=== PATIENT | female | born 1980 | race Caucasian/White ===

== ENCOUNTER 2017-04-24 03:38 | Emergency (ER) | payer OTHER ==
[2017-04-24 04:02] LABS: URINE BILIRUBIN NEGATIVE (NEGATIVE); URINE BLOOD 3+ (NEGATIVE); URINE GLUCOSE (UA) NORMAL (NORMAL); URINE KETONE TRACE (NEGATIVE); URINE LEUKOCYTE ESTERASE 2+ (NEGATIVE); URINE NITRATE NEGATIVE (NEGATIVE); URINE PROTEIN 2+ (NEGATIVE); UROBILINOGEN NORMAL mg/dL (<1.0)
[2017-04-24 04:03] LABS: BASO % 0.3 % (0.1-1.2); EOS # 0.4 10_X3_uL (0.0-0.4); EOS % 3.8 % (0.7-5.8); GRAN # 7.2 10_X3_uL (1.6-6.1); GRAN % 69.3 % (34.0-71.1); HEMATOCRIT 36.3 % (34-45); HEMOGLOBIN 12.5 g/dL (11.2-15.7); LYMPH # 2.1 10_X3_uL (1.2-3.7); LYMPH % 19.9 % (19.3-51.7); MEAN CORPUSCULAR HGB CONC 34.4 g/dL (32.0-36.0); MEAN CORPUSCULAR VOLUME 95.8 fL (79-95); MEAN PLATELET VOLUME 10.5 fl (7.5-11.5); MONO # 0.7 10_X3_uL (0.2-0.9); MONO % 6.7 % (4.7-12.5); PLATELET COUNT 180 x10_3/uL (182-369); RED BLOOD COUNT 3.79 x10_6/uL (3.9-5.2); RED CELL DISTRIBUTION WIDTH 12.3 % (11.7-14.4); WHITE BLOOD COUNT 10.3 x10_3/uL (4.0-10.0)
[2017-04-24 04:11] LABS: URINE BACTERIA 1+ (NONE SEEN); URINE RBC TNTC /[HPF] (0-2); URINE WBC TNTC /[HPF] (0-5)
== END 2017-04-25 04:47 | disposition home or self-care (01) ==
LOC: ER 03:38
PROVIDERS: General Practice
DX: N39.0 Urinary tract infection, site not specified (principal); N93.9 Abnormal uterine and vaginal bleeding, unspecified; Z98.51 Tubal ligation status; F17.210 Nicotine dependence, cigarettes, uncomplicated
CPT/HCPCS: 36415; 81001; 84703; 85025; 87086; 87186; 99283